=== PATIENT | male | born 1975 | race Caucasian/White ===

== ENCOUNTER 2018-09-13 10:28 | Emergency (ER) | payer BC ==
[2018-09-13 10:47] VITALS: BP 113/82
--- NOTE | 2018-09-13 11:51 | EDM.PDOC ---
<Ro Foster - Last Filed: 09/13/18 13:46> ED HPI GENERAL MEDICAL PROBLEM - General Chief Complaint: Lower Extremity Injury/Pain Stated Complaint: POSSIBLE BLOOD CLOTS SENT BY [facility] Time Seen by Provider: 09/13/18 11:07 Source of Information: Reports: Patient History Limitations: Reports: No Limitations - History of Present Illness INITIAL COMMENTS - FREE TEXT/NARRATIVE: 43-year-old male presents to [place] chief complaint of bilateral lower Pain for the past 4 days. Reports the pain has been intermittent. Patient does report having a history of blood clots in his lower legs 4 years ago after being kicked by a horse. Patient does report pain is similar to when he had a blood clots. He reports taking Tylenol for his pain. He states that the pain has not been bad enough to take anything regular basis. He states the pain is better when he gets up and ambulates. States nothing makes it worse. He denies any shortness of breath or chest pain. Past medical history of anxiety and blood clots. He does admit to chewing tobacco for the past 20 years. He has not been around any sick contact. His primary care doctor is Dr. Coffman. Onset: Gradual Onset Date: 09/09/18 Onset Time: 09:00 Duration: Intermittent, Waxing/Waning Location: Reports: Lower Extremity, Left, Lower Extremity, Right Quality: Reports: Dull Severity: Mild Improves with: Reports: Other (ambulation) Worsens with: Reports: None Associated Symptoms: Reports: No Other Symptoms. Denies: Chest Pain, Cough, Fever/Chills, Headaches Bilateral Leg Pain Score (Numeric/FACES): 3 - Related Data Allergies Allergy/AdvReac Type Severity Reaction Status Date / Time penicillin Allergy Rash Verified 09/13/18 10:37 Home Meds: Home Meds Citalopram [Citalopram HBr] 40 mg PO DAILY 03/19/15 [History] ALPRAZolam [Xanax] 0.5 mg PO Q6H 05/20/15 [History] Past Medical History HEENT History: Reports: Hard of Hearing Other Respiratory History: blood clots in legs Other Genitourinary History: vasectomy Musculoskeletal History: Reports: Fracture, Other (See Below) Other Musculoskeletal History: blood clots to bilateral legs. Neurological History: Reports: Concussion Psychiatric History: Reports: Anxiety Endocrine/Metabolic History: Reports: Other (See Below) Other Endocrine/Metabolic History: hypoglycemia Other Hematologic History: blood clots in legs, hematoma removed - Infectious Disease History Infectious Disease History: Reports: Chicken Pox Social & Family History - Tobacco Use Years of Tobacco use: 20 Packs/Tins Daily: 1 - Caffeine Use Caffeine Use: Reports: Coffee - Recreational Drug Use Recreational Drug Use: No Review of Systems - Review of Systems Review Of Systems: See Below Constitutional: Denies: Chills, Fever Respiratory: Denies: Shortness of Breath Cardiovascular: Denies: Chest Pain, Edema Musculoskeletal: Reports: Other (Bilateral leg pain) Skin: Reports: No Symptoms Neurological: Reports: No Symptoms Psychiatric: Reports: No Symptoms ED EXAM, GENERAL - Physical Exam Exam: See Below Exam Limited By: No Limitations General Appearance: Alert, WD/WN, No Apparent Distress Respiratory/Chest: No Respiratory Distress, Lungs Clear, Normal Breath Sounds, No Accessory Muscle Use, Chest Non-Tender Cardiovascular: Normal Peripheral Pulses, Regular Rate, Rhythm, No Edema, No Gallop, No JVD, No Murmur, No Rub Peripheral Pulses: 4+: Posterior Tibial (L), Posterior Tibial (R), Dorsalis Pedis (L), Dorsalis Pedis (R) GI/Abdominal: Normal Bowel Sounds, Soft, Non-Tender, No Organomegaly, No Distention, No Abnormal Bruit, No Mass, Pelvis Stable Back Exam: Normal Inspection, Full Range of Motion, Other Extremities: Normal Inspection, Normal Range of Motion, Non-Tender, No Pedal Edema, Normal Capillary Refill Neurological: Alert, Oriented, CN II-XII Intact, Normal Cognition, Normal Gait, Normal Reflexes, No Motor/Sensory Deficits Skin Exam: Warm, Dry, Intact, Normal Color, No Rash Lymphatic: No Adenopathy Course - Vital Signs Last Recorded V/S: Last Vital Signs Temp 97.1 F 09/13/18 10:35 Pulse 67 09/13/18 10:35 Resp 16 09/13/18 10:35 BP 113/82 09/13/18 10:35 Pulse Ox 97 09/13/18 10:35 - Orders/Labs/Meds Labs: Laboratory Tests 09/13/18 09/13/18 09/13/18 Range/Units 11:05 11:05 11:05 WBC 4.57 (4.23-9.07) K/mm3 RBC 4.93 (4.63-6.08) M/mm3 Hgb 14.9 (13.7-17.5) gm/L Hct 44.6 (40.1-51.0) % MCV 90.5 (79.0-92.2) fl MCH 30.2 (25.7-32.2) pg MCHC 33.4 (32.2-35.5) g/dl RDW Std Deviation 42.4 (35.1-43.9) fL Plt Count 214 (163-337) K/mm3 MPV 10.2 (9.4-12.3) fl Neut % (Auto) 62.1 (34.0-67.9) % Lymph % (Auto) 24.1 (21.8-53.1) % Marion % (Auto) 11.4 (5.3-12.2) % Eos % (Auto) 1.1 (0.8-7.0) Baso % (Auto) 0.9 (0.1-1.2) % Neut # (Auto) 2.84 (1.78-5.38) K/mm3 Lymph # (Auto) 1.10 L (1.32-3.57) K/mm3 Marion # (Auto) 0.52 (0.30-0.82) K/mm3 Eos # (Auto) 0.05 (0.04-0.54) K/mm3 Baso # (Auto) 0.04 (0.01-0.08) K/mm3 Manual Slide Review Not Reportable PT 10.9 (9.5-12.1) SECONDS INR 1.00 D-Dimer, Quantitative 0.21 (0.19-0.50) mg/L Sodium (136-145) mEq/L Potassium (3.5-5.1) mEq/L Chloride (98-107) mEq/L Carbon Dioxide (21-32) mEq/L Anion Gap (5-15) BUN (7-18) mg/dL Creatinine (0.7-1.3) mg/dL Est Cr Clr Drug Dosing mL/min Estimated GFR (MDRD) (>60) mL/min BUN/Creatinine Ratio (14-18) Glucose (74-106) mg/dL Calcium (8.5-10.1) mg/dL Total Bilirubin (0.2-1.0) mg/dL AST (15-37) U/L ALT (16-63) U/L Alkaline Phosphatase (46-116) U/L Total Protein (6.4-8.2) g/dl Albumin (3.4-5.0) g/dl Globulin gm/dL Albumin/Globulin Ratio (1-2) // Range/Units 11:05 WBC (4.23-9.07) K/mm3 RBC (4.63-6.08) M/mm3 Hgb (13.7-17.5) gm/L Hct (40.1-51.0) % MCV (79.0-92.2) fl MCH (25.7-32.2) pg MCHC (32.2-35.5) g/dl RDW Std Deviation (35.1-43.9) fL Plt Count (163-337) K/mm3 MPV (9.4-12.3) fl Neut % (Auto) (34.0-67.9) % Lymph % (Auto) (21.8-53.1) % Marion % (Auto) (5.3-12.2) % Eos % (Auto) (0.8-7.0) Baso % (Auto) (0.1-1.2) % Neut # (Auto) (1.78-5.38) K/mm3 Lymph # (Auto) (1.32-3.57) K/mm3 Marion # (Auto) (0.30-0.82) K/mm3 Eos # (Auto) (0.04-0.54) K/mm3 Baso # (Auto) (0.01-0.08) K/mm3 Manual Slide Review PT (9.5-12.1) SECONDS INR D-Dimer, Quantitative (0.19-0.50) mg/L Sodium 138 (136-145) mEq/L Potassium 3.9 (3.5-5.1) mEq/L Chloride 104 (98-107) mEq/L Carbon Dioxide 24 (21-32) mEq/L Anion Gap 13.9 (5-15) BUN 19 H (7-18) mg/dL Creatinine 1.2 (0.7-1.3) mg/dL Est Cr Clr Drug Dosing 83.67 mL/min Estimated GFR (MDRD) > 60 (>60) mL/min BUN/Creatinine Ratio 15.8 (14-18) Glucose 118 H (74-106) mg/dL Calcium 9.8 (8.5-10.1) mg/dL Total Bilirubin 0.5 (0.2-1.0) mg/dL AST 19 (15-37) U/L ALT 28 (16-63) U/L Alkaline Phosphatase 47 (46-116) U/L Total Protein 7.9 (6.4-8.2) g/dl Albumin 4.5 (3.4-5.0) g/dl Globulin 3.4 gm/dL Albumin/Globulin Ratio 1.3 (1-2) - Re-Assessments/Exams Free Text/Narrative Re-Assessment/Exam: 09/13/18 13:49 His labs were unremarkable. D-dimer was negative at 0.21. Venous Doppler negative for DVT. It did reveal a small superficial left thrombophlebitis. I will discharge home with instructions to take a baby aspirin daily. Instructed patient to take [id number] ibuprofen 800 mg every 8 hours as needed for pain. Or Tylenol as needed for pain. Instructed patient to follow up with Dr. Thom Cruz at [facility] to evaluate is concerned about his vasectomy that he had 5 years ago. Instructed patient to follow-up with his PCP as needed. 6 patient return to emergency for any new or acute worsening symptoms. Departure - Departure Time of Disposition: 13:52 Disposition: Home, Self-Care 01 Condition: Good Clinical Impression: Leg pain, bilateral - Discharge Information *PRESCRIPTION DRUG MONITORING PROGRAM REVIEWED*: Not Applicable *COPY OF PRESCRIPTION DRUG MONITORING REPORT IN PATIENT FRANCISCA: Not Applicable Instructions: Musculoskeletal Pain Referrals: Mahamed Sandra MD [Primary Care Provider] - Forms: ED Department Discharge Additional Instructions: Hip and diagnosed with lower leg pain. Recommend to take a baby aspirin 81 mg daily. Take ibuprofen 800 mg every 8 hours as needed for pain. She'll follow-up with her PCP as needed. Follow-up with Dr.Cameron Cruz for your considered regarding your facetectomy. Return to emergency room for any new or acutely worsening symptoms. <Wilton Worthington - Last Filed: 09/13/18 19:40> Course - Re-Assessments/Exams Free Text/Narrative Re-Assessment/Exam: 09/13/18 12:33 Initial history and exam done by MARVA Covarrubias. I agree with her history and exam as documented. I also did examine patient. I am aware of findings with ultrasound of lower extremities, labs ordered and agree with plan of treatment.
--- NOTE | 2018-09-13 13:33 | US ---
Bilateral lower extremities deep venous ultrasound: Duplex and color flow imaging was obtained of the right and left common femoral, proximal greater saphenous, superficial femoral, popliteal, posterior tibial and peroneal veins. Findings: Normal phasic flow, augmentation and compression are seen. There is a left calf vein showing lack of flow which likely represent superficial thrombophlebitis. Impression: 1. No evidence of deep venous thrombosis within the right or left lower extremities. 2. Small area of probable superficial thrombophlebitis within a left calf vein. Diagnostic code #3
== END 2018-09-13 14:05 | disposition home or self-care (01) ==
LOC: JD.ED 10:28
DX: I80.02 Phlebitis and thrombophlebitis of superficial vessels of left lower extremity (principal); M79.604 Pain in right leg; Z88.0 Allergy status to penicillin; Z79.899 Other long term (current) drug therapy
CPT/HCPCS: 36415; 80053; 85025; 85379; 85610; 93970; 93970-26; 99282; 99284-25